=== PATIENT | female | born 2000 | race Two or more races ===

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

== ENCOUNTER 2023-03-13 16:56 | Emergency (ER) | payer MEDICAID ==
[~2023-03-13] VITALS: Ht 160 cm; Wt 55.0 kg
[~2023-03-13 16:56] MED LIST: PREN1TAB78 MT
[2023-03-13 17:18] VITALS: O2SAT 96
[2023-03-13 21:16] VITALS: BP 115/72; PULSE 72; RESP 18; TEMP 98.5
== END 2023-03-13 21:18 | disposition home or self-care (01) ==
LOC: ER 16:56
DX: S00.33XA Contusion of nose, initial encounter (principal); Y04.0XXA Assault by unarmed brawl or fight, initial encounter; Y93.89 Activity, other specified; Y92.89 Other specified places as the place of occurrence of the external cause; Y99.8 Other external cause status
CPT/HCPCS: 70160; 99283

== ENCOUNTER 2024-01-19 13:17 | Emergency (ER) | payer MEDICAID ==
[~2024-01-19] VITALS: Ht 167.6 cm; Wt 60.0 kg
[2024-01-19 13:27] VITALS: O2SAT 100
[2024-01-19] MEDS ORDERED: ONDA-239 PO (14:02)
[2024-01-19 14:13] VITALS: BP 100/54; PULSE 66; RESP 16; TEMP 36.89184; O2SAT 100
[2024-01-19] MEDS: ONDANSETRON 4MG ODT PO ONE (14:14)
== END 2024-01-19 14:13 | disposition home or self-care (01) ==
LOC: ER 13:17
DX: R05.9 Cough, unspecified (principal); J45.909 Unspecified asthma, uncomplicated; Z98.890 Other specified postprocedural states
CPT/HCPCS: 99283; Q0162

== ENCOUNTER 2024-12-23 09:37 | Emergency (ER) | payer MEDICAID ==
[~2024-12-23] VITALS: Ht 162.6 cm; Wt 60.0 kg
[~2024-12-23 09:37] MED LIST changes: +ONDA-239 PO
[2024-12-23 09:44] VITALS: O2SAT 100
[2024-12-23] MEDS: ACETAMINOPHEN 325MG TABLET PO ONE (11:02)
[2024-12-23] MEDS: TETANUS, DIPHTHERIA, PERTUSSIS VAC/PF 0.5ML (>10YR OLD) IM ONE (11:02)
[2024-12-23 11:13] VITALS: BP 102/84; PULSE 72; RESP 18; TEMP 36.7; O2SAT 100
== END 2024-12-23 11:16 | disposition home or self-care (01) ==
LOC: ER 09:37
DX: S02.2XXA Fracture of nasal bones, initial encounter for closed fracture (principal); S06.9X1A Unspecified intracranial injury with loss of consciousness of 30 minutes or less, initial encounter; S00.511A Abrasion of lip, initial encounter; J45.909 Unspecified asthma, uncomplicated; Z98.890 Other specified postprocedural states; Y04.0XXA Assault by unarmed brawl or fight, initial encounter; Y93.89 Activity, other specified; Y99.9 Unspecified external cause status; Y99.8 Other external cause status
CPT/HCPCS: 70486; 90471; 90715; 99291